=== PATIENT | male | born 1980 | race African-American/Black ===

== ENCOUNTER 2019-01-01 10:06 | Emergency (ER) | payer OTHER ==
[2019-01-01] MEDS ORDERED: LORAZEPAM INJ 2 MG/1 ML VIAL IV ONE (10:37)
--- NOTE | 2019-01-01 10:39 | ER Document Report ---
Addendum entered and electronically signed by ISAAC TRUJILLO LPC 01/01/19 13:00: Discharge - Discharge Clinical Impression: Methamphetamine use, Manic behavior, Depression, Grief, Psychosocial stressors Condition: Stable Disposition: HOME, SELF-CARE Instructions: Anxiety ([facility]) Additional Instructions: You were seen by both medical and behavioral health providers while in the emergency department. You have been cleared from both acute medical and psychiatric issues. It is felt with all the psychosocial stress, grief, and the drug use that it increased your anxiety and depression. You stated you were interested in therapy but not medication at this time. You have been provided resources for therapy. You should start therapy as soon as possible. It is recommended that you avoid alcohol and other drug use as these inhibit you and alter your cognition. DEPRESSION: (many symptoms arise from grief and psychosocial stress, depression is one, other include anxiety and anger) Your evaluation reveals that you have mental depression. While symptoms may be vague, they often include disturbance of sleep, fatigue, loss of appetite, and general loss of interest in life. While depression may be a side effect of drugs, or a reaction to a major change in your life, many cases have no known cause. If depression is acute, and related to a major loss in your life, you can expect it to clear completely with time. If you have been depressed a long time, are prone to repeated bouts of depression or low mood, or have been thinking of suicide, get help. Depression can be treated with anti-depressant medication and counselling. Long-term depression will often take a few weeks to clear, even with appropriate medication. Follow-up care is important. AMPHETAMINE / METHAMPHETAMINE ABUSE: Amphetamines are addicting stimulants. Amphetamines overstimulate the nervous system and give a false feeling of power and mastery. These drugs may be obtained as prescription pills for weight loss, narcolepsy, or attention-deficit disorder. More often they're bought as an illegal street drug, methamphetamine (crank, crystal, speed). Using amphetamines repeatedly can lead to serious medical problems including malnutrition, severe depression, and paranoia. It can take increasing amounts to feel good. Eventually, there will be a "burn out." When you go off amphetamines there is a period of depression that may last for weeks or even months. High doses of amphetamines can cause seizures, confusion, hallucinations, delusions, high blood pressure, muscle damage, heart damage, or sudden . Many times these deadly complications occur even with "normal" doses. Injection of amphetamines is risky for developing abscesses, endocarditis (heart infection), pneumonia, and AIDS. Withdrawal from amphetamines often causes anxiety, depression, and drug cravings. Some users become paranoid and psychotic. There may be cramps, nausea, and vomiting. Many treatment programs are available, but you must make the decision to quit. Medication can be prescribed to control the symptoms of amphetamine toxicity (beta blockers or benzodiazepines). Withdrawal symptoms may require tranquilizers. FOLLOW-UP CARE: You have been provided the outpatient mental health resource sheet which highlighted [facility] for therapy and the [facility] for crisis/talk therapy/linkage to other services/supports. The [facility] was going to make an appointment with [facility] but you were unsure of your availability. It is recommended you call them today after checking your schedule or at least tomorrow morning. If you experience worsening or a significant change in your symptoms, notify the physician immed iately, utilize mobile crisis or return to the Emergency Department at any time for re-evaluation. Referrals: [facility] [Outside] - Follow up as needed [facility] [Provider Group] - Follow up as needed Original Note: ED Medical Screen (RME) - General Chief Complaint: Chest Pain Stated Complaint: CHEST PAIN Time Seen by Provider: 01/01/19 10:22 Mode of Arrival: Ambulatory Information source: Patient Notes: Patient presents complaining of difficulty breathing today. Patient reports having an anxiety attack. Patient states that he has been late to work in his possibly going to lose his job. Patient also reports having someone show up at his house that he did not want to come there who sat in the driveway and kept pulling on his front door. Patient denies any chest pain symptoms. Patient does have a history of anxiety and high blood pressure. Patient states that he has been off his blood pressure medication for a few days. Patient also reports using methamphetamine a few days ago to help cope with his problems. I have greeted and performed a rapid initial assessment of this patient. A comprehensive ED assessment and evaluation of the patient, analysis of test results and completion of the medical decision making process will be conducted by additional ED providers. TRAVEL OUTSIDE OF THE [place] IN LAST 30 DAYS: No - Related Data Allergies/Adverse Reactions: No Known Allergies Allergy (Unverified 01/01/19 10:08) Physical Exam - Psychological Associated symptoms: Anxious, Tearful
[2019-01-01 11:15] LABS: ABSOLUTE EOSINOPHILS # (AUTO) 0.1 10^3/uL (0.0-0.6); ABSOLUTE LYMPHOCYTES (AUTO) 2.4 10^3/uL (0.5-4.7); ABSOLUTE MONOCYTES (AUTO) 0.3 10^3/uL (0.1-1.4); BASOPHILS % (AUTO) 0.8 % (0-2); HEMATOCRIT 40.4 % (37.9-51.0); HEMOGLOBIN 13.3 g/dL (13.5-17.0); LYMPHOCYTES % (AUTO) 42.1 % (13-45); MEAN CORPUSCULAR HEMOGLOBIN 28.1 pg (27.0-33.4); MEAN CORPUSCULAR VOLUME 85 fl (80-97); MONOCYTES % (AUTO) 5.1 % (3-13); PLATELET COUNT 368 10^3/uL (150-450); RED BLOOD COUNT 4.75 10^6/uL (4.35-5.55); RED CELL DISTRIBUTION WIDTH 14.1 % (11.5-14.0); TOTAL CELLS COUNTED % (AUTO) 100 %; WHITE BLOOD COUNT 5.8 10^3/uL (4.0-10.5)
[2019-01-01 11:16] LABS: INTERNATIONAL RATION (INR) 1.01; PROTHROMBIN TIME 13.3 SEC (11.4-15.4)
[2019-01-01 11:33] LABS: ALANINE AMINOTRANSFERASE 71 U/L (21-72); ALKALINE PHOSPHATASE 82 U/L (38-126); ANION GAP 11 (5-19); ASPARTATE AMINO TRANSFERASE 52 U/L (17-59); BILIRUBIN,DIRECT 0.2 mg/dL (0.0-0.4); BILIRUBIN,TOTAL 0.4 mg/dL (0.2-1.3); BLOOD UREA NITROGEN 12 mg/dL (7-20); CALCIUM 10.2 mg/dL (8.4-10.2); CARBON DIOXIDE 27 mmol/L (22-30); CHLORIDE 107 mmol/L (98-107); CREATINE KINASE 1460 U/L (55-170); GLUCOSE 93 mg/dL (75-110); POTASSIUM 4.8 mmol/L (3.6-5.0); TOTAL PROTEIN 8.1 g/dL (6.3-8.2)
[2019-01-01 11:43] LABS: CREATINE KINASE MB 6.16 ng/mL (<4.55)
[2019-01-01 11:48] LABS: TROPONIN I < 0.012 ng/mL
[2019-01-01] MEDS ORDERED: NORMAL SALINE 1000 ML 1,000 ML IV ONE ×2 (13:07→13:44)
[2019-01-01 14:44] LABS: AMORPHOUS SEDIMENT,URINE 2+ /HPF; APPEARANCE,URINE TURBID; BILIRUBIN,URINE NEGATIVE (NEGATIVE); COLOR,URINE YELLOW; GLUCOSE, URINE NEGATIVE (NEGATIVE); KETONES,URINE NEGATIVE (NEGATIVE); LEUKOCYTE ESTERASE,URINE NEGATIVE (NEGATIVE); NITRITE,URINE NEGATIVE (NEGATIVE); PROTEIN,URINE 30 mg/dL (NEGATIVE); URINE SPECIFIC GRAVITY 1.029; UROBILINOGEN,URINE NEGATIVE mg/dL (<2.0)
--- NOTE | 2019-01-01 14:51 | PSYCHOLOGICAL NOTE ---
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 He denied SI/HI. No observed psychosis that interfered with his ability to express self and wants/needs. He had pressured speech and exhibited emilie symptoms. He admitted to injecting methamphetamine for the first time at like midnight. He identified psychosocial stresses (work, friends/roommates and difficulty, grief over of friends recent and past). He was open to therapy but not medications. [facility] wanted to make appointment with [facility] but patient said he did not know what was a good day. Provided patient with the outpatient MH resource sheet which highlighted [facility], as well as [facility] for crisis/talk therapy/linkage to other services and supports. Consulted with Dr. Eaton regarding the management and care of patient. ED Physician in agreement with recommendations.
[2019-01-01 14:52] LABS: URINE BARBITURATES SCREEN NEGATIVE; URINE BENZODIAZEPINES SCREEN NEGATIVE; URINE COCAINE SCREEN NEGATIVE; URINE MARIJUANA (THC) SCREEN NEGATIVE; URINE METHADONE SCREEN NEGATIVE; URINE PHENCYCLIDINE SCREEN NEGATIVE
--- NOTE | 2019-01-01 16:59 | ER Document Report ---
Entered by FALLON FERRARO SCRIBE 01/01/19 1406 Acting as scribe for:TRINA MATHEW MD ED General - General Chief Complaint: Anxiety Stated Complaint: CHEST PAIN Time Seen by Provider: 01/01/19 10:22 Primary Care Provider: [facility] [Provider Group] - Follow up as needed [facility] [Outside] - Follow up as needed Mode of Arrival: Ambulatory Notes: Patient is a 38-year-old male presenting to the emergency department complaining of chest pain with an associated anxiety attack. Patient states that he was out in public earlier and that people around him "were acting crazy". Patient states that he began having a severe anxiety attack and then promptly came to the emergency department. Patient states that he injected meth to cope with his anxiety it is revealed that patient injected at midnight last night, however patient denies any drug abuse. Patient states that he is supposed to be taking lisinopril with HCTZ but does not take them, because [facility]. TRAVEL OUTSIDE OF THE [place] IN LAST 30 DAYS: No - Related Data Allergies/Adverse Reactions: No Known Allergies Allergy (Unverified 01/01/19 10:08) Past Medical History - General Information source: Patient - Social History Smoking Status: Current Every Day Smoker Cigarette use (# per day): Yes Chew tobacco use (# tins/day): No Frequency of alcohol use: None Drug Abuse: Methamphetamine Lives with: Family Family History: Reviewed & Not Pertinent Patient has suicidal ideation: No Patient has homicidal ideation: No Review of Systems - Review of Systems Constitutional: No symptoms reported EENT: No symptoms reported Cardiovascular: See HPI, Chest pain Respiratory: No symptoms reported Gastrointestinal: No symptoms reported Genitourinary: No symptoms reported Male Genitourinary: No symptoms reported Musculoskeletal: No symptoms reported Skin: No symptoms reported Hematologic/Lymphatic: No symptoms reported Neurological/Psychological: See HPI, Anxiety -: Yes All other systems reviewed and negative Physical Exam - Notes Notes: Physical Exam: General: Alert, anxious, rambles about random things. HEENT: Normocephalic. Atraumatic. PERRL. Extraocular movements intact. Oropharynx clear. Neck: Supple. Non-tender. Respiratory: No respiratory distress. Clear and equal breath sounds bilaterally. Cardiovascular: Regular rate and rhythm. Abdominal: Normal Inspection. Non-tender. No distension. Normal Bowel Sounds. Back: Non-tender. No deformity or step off. Extremities: Moves all four extremities. Upper extremities: Normal inspection. Normal ROM. Lower extremities: Normal inspection. No edema. Normal ROM. Neurological: Normal cognition. AAOx4. Normal speech. Psychological: Normal affect. Normal Mood. Skin: Warm. Dry. Normal color. Course - Laboratory Result Diagrams: 01/01/19 10:54 01/01/19 10:54 Laboratory results interpreted by me: 01/01/19 01/01/19 01/01/19 10:54 10:54 10:54 Hgb 13.3 L RDW 14.1 H Creatine Kinase 1460 H CK-MB (CK-2) 6.16 H Urine Protein 01/01/19 01/01/19 12:53 17:45 Hgb RDW Creatine Kinase 928 H CK-MB (CK-2) Urine Protein 30 H Discharge - Discharge Clinical Impression: Methamphetamine use, Manic behavior, Grief, Psychosocial stressors Depression Qualifiers: Depression Type: unspecified Qualified Code(s): F32.9 - Major depressive disorder, single episode, unspecified Rhabdomyolysis Qualifiers: Rhabdomyolysis type: non-traumatic Qualified Code(s): M62.82 - Rhabdomyolysis Condition: Stable Disposition: HOME, SELF-CARE Instructions: Anxiety ([facility]) Additional Instructions: You were seen by both medical and behavioral health providers while in the emergency department. You have been cleared from both acute medical and psychiatric issues. It is felt with all the psychosocial stress, grief, and the drug use that it increased your anxiety and depression. You stated you were interested in therapy but not medication at this time. You have been provided resources for therapy. You should start therapy as soon as possible. It is recommended that you avoid alcohol and other drug use as these inhibit you and alter your cognition. DEPRESSION: (many symptoms arise from grief and psychosocial stress, depression is one, other include anxiety and anger) Your evaluation reveals that you have mental depression. While symptoms may be vague, they often include disturbance of sleep, fatigue, loss of appetite, and general loss of interest in life. While depression may be a side effect of drugs, or a reaction to a major change in your life, many cases have no known cause. If depression is acute, and related to a major loss in your life, you can expect it to clear completely with time. If you have been depressed a long time, are prone to repeated bouts of depression or low mood, or have been thinking of suicide, get help. Depression can be treated with anti-depressant medication and counselling. Long-term depression will often take a few weeks to clear, even with appropriate medication. Follow-up care is important. AMPHETAMINE / METHAMPHETAMINE ABUSE: Amphetamines are addicting stimulants. Amphetamines overstimulate the nervous system and give a false feeling of power and mastery. These drugs may be obtained as prescription pills for weight loss, narcolepsy, or attention-deficit disorder. More often they're bought as an illegal street drug, methamphetamine (crank, crystal, speed). Using amphetamines repeatedly can lead to serious medical problems inclu ding malnutrition, severe depression, and paranoia. It can take increasing amounts to feel good. Eventually, there will be a "burn out." When you go off amphetamines there is a period of depression that may last for weeks or even months. High doses of amphetamines can cause seizures, confusion, hallucinations, delusions, high blood pressure, muscle damage, heart damage, or sudden . Many times these deadly complications occur even with "normal" doses. Injection of amphetamines is risky for developing abscesses, endocarditis (heart infection), pneumonia, and AIDS. Withdrawal from amphetamines often causes anxiety, depression, and drug cravings. Some users become paranoid and psychotic. There may be cramps, nausea, and vomiting. Many treatment programs are available, but you must make the decision to quit. Medication can be prescribed to control the symptoms of amphetamine toxicity (beta blockers or benzodiazepines). Withdrawal symptoms may require tranquilizers. FOLLOW-UP CARE: You have been provided the outpatient mental health resource sheet which highlighted [facility] for therapy and the [facility] for crisis/talk therapy/linkage to other services/supports. The [facility] was going to make an appointment with [facility] but you were unsure of your availability. It is recommended you call them today after checking your schedule or at least tomorrow morning. If you experience worsening or a significant change in your symptoms, notify the physician immediately, utilize mobile crisis or return to the Emergency Department at any time for re-evaluation. Your muscle enzymes were quite high today, this is known as rhabdomyolysis. This was caused due to the methamphetamine abuse. It is very important that you drink lots of fluids over the next few days to help wash these enzymes out of your system and prevent damage to your kidneys. Follow-up with mental health providers as recommended above and try to abstain from using illicit medications and drugs in the future. RETURN TO THE EMERGENCY ROOM IF ANY NEW OR WORSENING SYMPTOMS. Referrals: [facility] [Provider Group] - Follow up as needed [facility] [Outside] - Follow up as needed Scribe Attestation: 01/01/19 17:45 I personally performed the services described in the documentation, reviewed and edited the documentation which was dictated to the scribe in my presence, and it accurately records my words and actions. I personally performed the services described in the documentation, reviewed and edited the documentation which was dictated to the scribe in my presence, and it accurately records my words and actions.
--- NOTE | 2019-01-02 00:30 | EKG REPORT ---
SEVERITY:- ABNORMAL ECG - SINUS RHYTHM LEFT VENTRICULAR HYPERTROPHY : Confirmed by: Nicole Villavicencio 02-Jan-2019 00:29:05
== END 2019-01-01 18:53 | disposition home or self-care (01) ==
LOC: ER 10:06
DX: R07.9 Chest pain, unspecified (principal); F11.90 Opioid use, unspecified, uncomplicated; F43.21 Adjustment disorder with depressed mood; M62.82 Rhabdomyolysis; F32.9 Major depressive disorder, single episode, unspecified
CPT/HCPCS: 93005; 99284; 96361; 96374; 36415; 82553; 82550; 85025; 85610; 80053; 81001; 84484; 80307; 93010; J2060; J7030; 71046